=== PATIENT | male | born 1960 | race African-American/Black ===

== ENCOUNTER 2024-10-21 10:03 | Emergency (ER) | payer OTHER, SELFPAY ==
[2024-10-21] VITALS (7 sets, daily range): BP systolic 130–162; BP diastolic 85–124
--- NOTE | 2024-10-21 10:18 | ED.GENMED ---
History of Present Illness
<ZAIDA Jc - Last Filed: 10/21/24 15:28>
General
Chief Complaint: Alcohol Problem
Source: ambulance crew
Exam Limitations: other (Patient sleeping nonverbal)
Time Seen by Provider: 10/21/24 10:04
Nursing documentation reviewed up to this point in time: agreed with
History of Present Illness
History of Present Illness:
Patient is a 64-year-old male that was sent from [facility] for lethargy. Patient has a history of alcohol use and apparently last used alcohol 2 days ago. He has been receiving Klonopin for withdrawal and as per EMS it is
possible the patient may have had extra Klonopin today. Patient presents sleeping snoring but arousable to sternal rub.. will attempt to answer questions.
Review of Systems
<ZAIDA Jc - Last Filed: 10/21/24 15:28>
Review of Systems
Allergies reviewed?: Yes
Unable to obtain full review of systems at this time due to: other (sleeping )
All Other Systems: ROS reviewed and negative except as documented in HPI and ROS
Constitutional: Reports no symptoms
Phy Exam
<ZAIDA Jc - Last Filed: 10/21/24 15:28>
General Physical Exam
General Presentation: no apparent distress
General age: appears stated age
General Skin: warm and dry
General Habitus: normal
General Mental: other (sleeping )
Cardiovascular Exam
Cardiovascular Exam: regular rate/rhythm, no murmur and normal peripheral pulses
Pulmonary Exam
Pulmonary Exam: lungs clear and no respiratory distress
Neurological Exam
Neurological Exam: other (sleepy, spontaneously moves all extremities)
Musculoskeletal Exam
Musculoskeletal Exam: full ROM
Skin Exam
Skin Exam: normal color and warm/dry
Psychiatric Exam
Psychiatric Exam: normal mood/affect
Scores
<ZAIDA Jc - Last Filed: 10/21/24 15:28>
Withdrawal Assessment of Alcohol
Withdrawal Assessment Completed?: Not applicable
Course
<ZAIDA Jc - Last Filed: 10/21/24 15:28>
Orders/Labs/Results
Orders:
Orders
10/21/24 10:16
Alcohol Urgent
Complete Blood Count/With Diff Urgent
Comprehensive Metabolic Panel Urgent
Fentanyl, Urine Urgent
Urine Drug Abuse Screen Urgent
Date Specimen was Collected: 10/21/24
Time Specimen was Collected: 10:14
Abnormal Lab Results
10/21/24
10:16
MCHC 32.6 L g/dL
(33.0-37.0)
Monocytes % 9.7 H %
(1.7-9.3)
Glucose 111 H mg/dl
(70-99)
Urine Cocaine Screen Positive H
(Negative)
10/21/24 10:16
10/21/24 10:16
Vital Signs
Initial and Last Documented VS:
Initial Vital Signs
Temp Pulse Resp BP Pulse Ox
98.5 F 84 16 150/117 99
10/21/24 10:13 10/21/24 10:13 10/21/24 10:13 10/21/24 10:13 10/21/24 10:13
Last Documented Vital Signs
Temp Pulse Resp BP Pulse Ox
98.5 F 98 16 162/116 98
10/21/24 10:13 10/21/24 15:12 10/21/24 12:00 10/21/24 15:12 10/21/24 14:00
Rotary Soil Stabilizer Operator consulted with Physician
Rotary Soil Stabilizer Operator consulted with physician?: Yes
Name of Physician Consulted: DR Montiel
<Hawa Montiel DO - Last Filed: 10/21/24 14:41>
Orders/Labs/Results
Orders:
Orders
10/21/24 10:16
Alcohol Urgent
Complete Blood Count/With Diff Urgent
Comprehensive Metabolic Panel Urgent
Fentanyl, Urine Urgent
Urine Drug Abuse Screen Urgent
Date Specimen was Collected: 10/21/24
Time Specimen was Collected: 10:14
Abnormal Lab Results
10/21/24
10:16
MCHC 32.6 L g/dL
(33.0-37.0)
Monocytes % 9.7 H %
(1.7-9.3)
Glucose 111 H mg/dl
(70-99)
Urine Cocaine Screen Positive H
(Negative)
10/21/24 10:16
10/21/24 10:16
Vital Signs
Initial and Last Documented VS:
Initial Vital Signs
Temp Pulse Resp BP Pulse Ox
98.5 F 84 16 150/117 99
10/21/24 10:13 10/21/24 10:13 10/21/24 10:13 10/21/24 10:13 10/21/24 10:13
Last Documented Vital Signs
Temp Pulse Resp BP Pulse Ox
98.5 F 98 16 162/116 98
10/21/24 10:13 10/21/24 15:12 10/21/24 12:00 10/21/24 15:12 10/21/24 14:00
<ZAIDA Jc - Last Filed: 10/21/24 15:28>
MDM/Problems Addressed
Differential Diagnosis Includes:
Not limited to overdose substance abuse
MDM/Problems Addressed:
Patient is a 64-year-old male sent from [facility] for lethargy. Patient has been present for the past 2 days last apparently used alcohol 2 days and is on Klonopin. There is a question as per EMS the patient received more Klonopin than he is
supposed to. Patient presents sleepy snoring however maintaining his airway and good vital signs. He does respond to sternal rub. His pupils on exam are pinpoint.
Patient was monitored here became more awake he did give a urine which was positive for cocaine negative fentanyl. patient is more awake alert ate and drank here in the ER and stable to be discharged back to [facility].
Patient is hypertensive however has no symptoms. Case reviewed with ED physician stable and medically clear for incarceration.
Chronic conditions affecting care:
Present
<ZAIDA Jc - Last Filed: 10/21/24 15:28>
*Pulse Oximetry
Patient hypoxic: no
*Zigzag Machine Operator Interpretation
Rate: normal
Interpretation: normal
Heart Rate: 84
Rhythm: sinus
*Critical Care Note
Total Time (30-74mins, 75-104mins- exclusive of procedures): Not Applicable
ED Attending Note
<ZAIDA Jc - Last Filed: 10/21/24 15:28>
-
Portions of this chart may have been created with voice recognition software.� Occasional wrong word or��sound alike� substitutions may have occurred due to the inherent limitations of voice recognition software.
<Hawa Montiel DO - Last Filed: 10/21/24 14:41>
ED Attending Note
Patient seen and examined by attending physician: Yes
I performed the substantive portion of visit, reviewed & personally made and approve the management plan that is documented in note by myself or GALDINO.: Yes
I performed a history and physical exam of patient and discussed management with resident, I reviewed resident's note and agree with documented findings and plan of care.: Yes
ED Attending Note:
64-year-old male presenting from correctional facility for lethargy and decreased responsiveness. Patient allegedly takes Klonopin and suspicion that patient was in line for medications twice today, may have taken an extra dose. Patient arrives
somnolent, yet arousable. Patient unable to comply with HPI given clinical condition. Alleged history of alcohol abuse, new to correctional facility. Vital signs are normal.
On exam patient is resting comfortably, however is somnolent. He is arousable to sternal rub. Pupils are pinpoint. He is currently protecting airway. Suspect intoxication with opioid type given pupils. Will continue to closely monitor and
medication obtain laboratory analysis including tox screen. Will hold off on Narcan unless patient's respiratory status changes.
14:40 -Labs unremarkable patient more awake, eating and drinking at bedside. UDS is positive for cocaine, however continue to suspect some sort of opiate ingestion as well. Feel stable for discharge back to facility. Return precautions discussed
Discharge Plan
Departure
Patient Disposition: Home (Routine Discharge)
Date of Disposition: 10/21/24
Time of Disposition: 15:17
Patient with high blood pressure during this ER visit?: Yes
Condition: Fair
Covid-19: Not Applicable
Discharge Problem:
Intoxication by drug
Instructions: BLOOD PRESSURE
Referrals:
[facility] [Family Provider] -
Activity Restrictions/Additional Instructions:
Pt tested positive for cocaine.
He is stable and medically cleared for incarceration
Interventions
Interventions:
*Risk Screen - Suicide Last Done: 10/21/24 10:20
*General Assessment Last Done: 10/21/24 10:20
*Neglect/Abuse Screening Last Done: 10/21/24 10:20
*ED COVID-19 Vaccine History Last Done: 10/21/24 10:19
ED- Neurological Assessment Last Done: 10/21/24 10:20
ED-Psychological Assessment Last Done: 10/21/24 10:20
Discharge Date and Time
Print Language: AMERICAN
[2024-10-21 10:38] LABS: % Basophils 0.6 % (0-2); % Eosinophils 2.5 % (0-6); % Immature Granulocytes 0.2 % (0-0.5); % Lymphocytes 28.6 % (20.5-51.1); % Monocytes 9.7 % (1.7-9.3); % Neutrophils 58.4 % (42.2-75.2); Absolute Eosinophils 0.1 10^3/uL (0-0.7); Absolute Lymphocytes 1.4 10^3/uL (1.2-3.4); Absolute Monocytes 0.5 10^3/uL (0.1-0.6); Absolute Neutrophils 2.8 10^3/uL (1.4-6.5); Hematocrit 47.5 % (39.0-52.0); Hemoglobin 15.5 g/dL (13.0-18.0); Mean Corp Hgb Conc. 32.6 g/dL (33.0-37.0); Mean Corpuscular Hgb 29.8 pg (27.0-31.0); Mean Corpuscular Volume 91.2 fL (80.0-94.0); Mean Platelet Volume 10.3 fL (7.4-10.4); Nucleated Red Blood Cells % 0 % (-); Platelet Count 203 10^3/uL (130-400); Red Blood Cell Count 5.21 10^6/uL (4.70-6.10); Red Cell Dist. Width 13.3 % (11.5-14.5); White Blood Cell Count 4.9 10^3/uL (4.8-10.8)
[2024-10-21 11:00] LABS: ALT (SGPT) 12 U/L (0-50); AST (SGOT) 19 U/L (17-59); Albumin 3.5 g/dl (3.5-5.0); Alkaline Phosphatase 83 U/L (38-126); Blood Urea Nitrogen 14 mg/dl (9-20); Calcium 9.5 mg/dl (8.4-10.2); Carbon Dioxide 26 mmol/L (22-30); Chloride 107 mmol/L (98-107); Glucose 111 mg/dl (70-99); Potassium 3.9 mmol/L (3.5-5.1); Sodium 140 mmol/L (135-145); Total Protein 6.6 g/dl (6.3-8.2); eGFR > 60.00
[2024-10-21 11:03] LABS: Alcohol None Detected
[2024-10-21 14:36] LABS: Amphetamines Negative (Negative); Barbiturates Negative (Negative); Benzodiazepines Negative (Negative); Buprenorphine Negative (Negative); Cocaine Positive (Negative); Marijuana Negative (Negative); Methadone Negative (Negative); Methamphetamines Negative (Negative); Opiates Negative (Negative); Phencyclidine Negative (Negative); Tricyclic Antidepressants Negative (Negative)
[2024-10-21 15:12] LABS: Fentanyl, Urine Negative (Negative)
== END 2024-10-21 15:32 | disposition home or self-care (01) ==
LOC: EMR 10:03
PROVIDERS: Nurse Practitioner; EMERGENCY PHYSICIAN Student in an Organized Health Care Education/Training Program
DX: R53.83 Other fatigue (principal); T50.905A Adverse effect of unspecified drugs, medicaments and biological substances, initial encounter; X58.XXXA Exposure to other specified factors, initial encounter; F10.90 Alcohol use, unspecified, uncomplicated; R06.83 Snoring
CPT/HCPCS: 99283; 80053; 80306; 80307; 82077; 85025